=== PATIENT | male | born 1950 | race Two or more races ===

== ENCOUNTER 2016-12-24 17:23 | Inpatient (IN) | payer MEDICARE, MEDICAID ==
[~2016-12-24] VITALS: Ht 170.2 cm; Wt 68.0 kg
[2016-12-24 17:30] VITALS: BP 108/78
[2016-12-24] MEDS ORDERED: METFORMIN HCL500 M1 ORAL (17:34)
[2016-12-24] MEDS ORDERED: COLACE100 MG ORAL (17:34)
[2016-12-24] MEDS ORDERED: TAMSULOSIN HCL0.4 MG ORAL (17:34)
[2016-12-24] MEDS ORDERED: ACETAMINOP160 MG/54 ORAL (17:34)
[2016-12-24] MEDS ORDERED: ZOCOR20 M1 ORAL (17:34)
[2016-12-24] MEDS ORDERED: DULCOLAX10 MG RC (17:34)
[2016-12-24] MEDS ORDERED: IBUPROFEN600 MG ORAL (17:34)
[2016-12-24] MEDS ORDERED: RISPERDAL2 MG ORAL (17:34)
[2016-12-24] MEDS ORDERED: LITHIUM CARBON300 MG ORAL (17:34)
[2016-12-24] MEDS ORDERED: MULTIVITAMINS1 EAC2 ORAL (17:34)
--- NOTE | 2016-12-24 17:49 | Emergency Room Report ---
History of Present Illness General Chief Complaint: General Complaint Source: Patient, Medical Record, EMS Present Illness HPI Patient is a 66-year-old male sent in by EMS after had decreased oral intake. Patient been sent in from nursing facility. Patient was noted to have eloped from the facility several times. Patient had not been complaining of any pain. Per jail patient had been not able to take by mouth fluids or food Allergies: Coded Allergies: No Known Allergies (Unverified , 12/24/16) Patient History Past Medical History: see triage record Reviewed Nursing Documentation: PMH: Agreed, PSxH: Agreed Nursing Documentation-PMH Hx Cardiac Problems: No Hx Hypertension: No Hx Pacemaker: No Hx Asthma: No Hx COPD: No Hx Diabetes: Yes History Of Psychiatric Problem: Yes - schizophrenia Hx Cerebrovascular Accident: No Hx Seizures: No Review of Systems All Other Systems: negative except mentioned in HPI Physical Exam Vital Signs Date Time Temp Pulse Resp B/P (MAP) Pulse Ox O2 Delivery O2 Flow Rate FiO2 12/24/16 17:17 98.2 62 16 130/70 98 Room Air Sp02 EP Interpretation: reviewed, normal General Appearance: normal inspection, alert, Chronically Ill Head: atraumatic ENT: normal ENT inspection, hearing grossly normal, normal voice Neck: normal inspection, full range of motion, supple, no bony tend Respiratory: normal inspection, lungs clear, normal breath sounds, no respiratory distress, no retraction, no wheezing Cardiovascular #1: regular rate, rhythm, no edema Gastrointestinal: normal inspection, normal bowel sounds, non tender, soft, no guarding, no hernia Genitourinary: no CVA tenderness Musculoskeletal: normal inspection, back normal, normal range of motion Neurologic: normal inspection, alert, responsive, oracle soa developer III-XII nml as tested, speech normal Psychiatric: anxious Skin: normal inspection, normal color, no rash Medical Decision Making Diagnostic Impression: Primary Impression: Bipolar disorder Additional Impression: Failure to thrive ER Course Patient presented for generalized weakness. Differential diagnosis included was not limited to anemia, urinary tract infection, electrolyte abnormality, hypothyroidism, myocardial infarction, myasthenia gravis, dehydration, among others. Laboratory studies showed evidence of mild dehydration.Dr. Nicho Chino was contacted for inpatient management Labs Test 12/24/16 16:34 12/24/16 16:50 12/24/16 17:51 White Blood Count 6.9 K/UL (4.8-10.8) Red Blood Count 4.34 M/UL (4.70-6.10) Hemoglobin 12.6 G/DL (14.2-18.0) Hematocrit 40.4 % (42.0-52.0) Mean Corpuscular Volume 93 FL (80-99) Mean Corpuscular Hemoglobin 29.1 PG (27.0-31.0) Mean Corpuscular Hemoglobin Concent 31.2 G/DL (32.0-36.0) Red Cell Distribution Width 14.3 % (11.6-14.8) Platelet Count 161 K/UL (150-450) Mean Platelet Volume 6.6 FL (6.5-10.1) Neutrophils (%) (Auto) 39.1 % (45.0-75.0) Lymphocytes (%) (Auto) 48.1 % (20.0-45.0) Monocytes (%) (Auto) 6.0 % (1.0-10.0) Eosinophils (%) (Auto) 5.5 % (0.0-3.0) Basophils (%) (Auto) 1.3 % (0.0-2.0) Sodium Level 140 mEQ/L (135-145) Potassium Level 4.0 mEQ/L (3.4-4.9) Chloride Level 103 mEQ/L (98-107) Carbon Dioxide Level 25 mEQ/L (20-30) Anion Gap 12 (5-15) Blood Urea Nitrogen 13 mg/dL (7-23) Creatinine 1.2 mg/dL (0.7-1.2) Estimat Glomerular Filtration Rate > 60 mL/min (>60) Glucose Level 78 mg/dL (74-106) Calcium Level 9.5 mg/dL (8.6-10.2) Phosphorus Level 3.5 mg/dL (2.5-4.8) Magnesium Level 2.1 mg/dL (1.7-2.5) Total Bilirubin 0.2 mg/dL (0.0-1.2) Aspartate Amino Transf (AST/SGOT) 24 U/L (5-40) Alanine Aminotransferase (ALT/SGPT) 15 U/L (3-41) Alkaline Phosphatase 58 U/L (40-129) Total Creatine Kinase 183 U/L (38-174) Creatine Kinase MB 2.6 ng/mL (< 6.7) Creatine Kinase MB Relative Index 1.4 Troponin I < 0.30 ng/mL (<=0.30) Total Protein 7.2 g/dL (6.6-8.7) Albumin 4.0 g/dL (3.5-5.2) Globulin 3.2 g/dL Albumin/Globulin Ratio 1.2 (1.0-2.7) Lactic Acid Level 1.00 mmol/L (0.66-2.22) Urine Color Pale yellow Urine Appearance Clear Urine pH 6.5 (4.5-8.0) Urine Specific [place] 1.010 (1.005-1.035) Urine Protein Negative (NEGATIVE) Urine Glucose (UA) Negative (NEGATIVE) Urine Ketones Negative (NEGATIVE) Urine Occult Blood Negative (NEGATIVE) Urine Nitrite Negative (NEGATIVE) Urine Bilirubin Negative (NEGATIVE) Urine Urobilinogen Normal MG/DL (0.0-1.0) Urine Leukocyte Esterase Negative (NEGATIVE) Last Vital Signs Date Time Temp Pulse Resp B/P (MAP) Pulse Ox O2 Delivery O2 Flow Rate FiO2 12/24/16 17:17 98.2 62 16 130/70 98 Room Air Status: improved Disposition: ADMITTED INPATIENT Condition: Po Aparicio Dec 24, 2016 17:49
[2016-12-24 18:30] VITALS: BP 108/82
[2016-12-24 18:48] LABS: APPEARANCE,URINE CLEAR; KETONES,URINE NEGATIVE (NEGATIVE); LEUKOCYTE ESTERASE ,URINE NEGATIVE (NEGATIVE); NITRITE,URINE NEGATIVE (NEGATIVE); PH,URINE 6.5 (4.5-8.0); PROTEIN,URINE NEGATIVE (NEGATIVE); UROBILINOGEN,URINE NORMAL MG/DL (0.0-1.0)
[2016-12-24 19:07] LABS: BASOPHILS % (AUTO) 1.3 % (0.0-2.0); EOSINOPHILS % (AUTO) 5.5 % (0.0-3.0); LYMPHOCYTES % (AUTO) 48.1 % (20.0-45.0); MEAN CORPUSCULAR HEMOGLOBIN 29.1 PG (27.0-31.0); MEAN CORPUSCULAR HGB CONC 31.2 G/DL (32.0-36.0); MEAN CORPUSCULAR VOLUME 93 FL (80-99); MEAN PLATELET VOLUME 6.6 FL (6.5-10.1); NEUTROPHILS % (AUTO) 39.1 % (45.0-75.0); PLATELET COUNT 161 K/UL (150-450); RED BLOOD COUNT 4.34 M/UL (4.70-6.10); RED CELL DISTRIBUTION WIDTH 14.3 % (11.6-14.8); WHITE BLOOD COUNT 6.9 K/UL (4.8-10.8)
[2016-12-24 19:20] LABS: ALANINE AMINOTRANSFERASE 15 U/L (3-41); ALBUMIN/GLOBULIN RATIO 1.2 (1.0-2.7); ANION GAP 12 (5-15); ASPARTATE AMINO TRANSFERASE 24 U/L (5-40); CALCIUM 9.5 mg/dL (8.6-10.2); CARBON DIOXIDE 25 mEQ/L (20-30); CHLORIDE 103 mEQ/L (98-107); CREATININE 1.2 mg/dL (0.7-1.2); GLOMERULAR FILTRATION RATE > 60 mL/min (>60); HEMOLYSIS 4; MAGNESIUM 2.1 mg/dL (1.7-2.5); PHOSPHORUS 3.5 mg/dL (2.5-4.8); SODIUM 140 mEQ/L (135-145); TOTAL PROTEIN 7.2 g/dL (6.6-8.7); TROPONIN I < 0.30 ng/mL (<=0.30)
[2016-12-24 19:31] LABS: CKMB 2.6 ng/mL (< 6.7)
[2016-12-24 19:45] VITALS: BP 117/70
[2016-12-24 22:06] VITALS: BP 110/75
[2016-12-24] MEDS ORDERED: Zolpidem 5mg tab ORAL PRN (22:15)
[2016-12-24] MEDS ORDERED: Miralax 17gm pkt ORAL PRN (22:15)
[2016-12-24] MEDS ORDERED: Mylanta II UD 30ml ORAL PRN (22:15)
[2016-12-24] MEDS ORDERED: Morphine Sulfate 2mg/ml Inj IVP PRN (22:15)
[2016-12-25] VITALS: BP 118/82
[2016-12-25] MEDS: Lithium Carbonate 150mg cap ORAL SCH ×2 (00:41→20:28)
[2016-12-25] MEDS: LORazepam Inj 2mg/ml 1ml IV PRN ×4 (02:46→18:52)
[2016-12-25 04:00] VITALS: BP 106/66
[2016-12-25 08:00] VITALS: BP 110/70
[2016-12-25 08:36] LABS: BASOPHILS % (AUTO) 0.8 % (0.0-2.0); EOSINOPHILS % (AUTO) 8.4 % (0.0-3.0); LYMPHOCYTES % (AUTO) 50.1 % (20.0-45.0); MEAN CORPUSCULAR HEMOGLOBIN 30.5 PG (27.0-31.0); MEAN CORPUSCULAR HGB CONC 33.4 G/DL (32.0-36.0); MEAN CORPUSCULAR VOLUME 91 FL (80-99); MEAN PLATELET VOLUME 6.4 FL (6.5-10.1); MONOCYTES % (AUTO) 8.2 % (1.0-10.0); NEUTROPHILS % (AUTO) 32.5 % (45.0-75.0); PLATELET COUNT 150 K/UL (150-450); RED BLOOD COUNT 4.02 M/UL (4.70-6.10)
[2016-12-25 08:43] LABS: ALANINE AMINOTRANSFERASE 13 U/L (3-41); ALBUMIN/GLOBULIN RATIO 1.1 (1.0-2.7); ANION GAP 10 (5-15); ASPARTATE AMINO TRANSFERASE 18 U/L (5-40); CALCIUM 9.1 mg/dL (8.6-10.2); CARBON DIOXIDE 24 mEQ/L (20-30); CHLORIDE 107 mEQ/L (98-107); CHOLESTEROL 107 mg/dL (< 200); CHOLESTEROL/HDL RATIO 1.9 (3.3-4.4); CREATININE 0.9 mg/dL (0.7-1.2); GLOMERULAR FILTRATION RATE > 60 mL/min (>60); HEMOLYSIS 0; LDL CHOLESTEROL CALC 35 mg/dL (60-99); POTASSIUM 3.9 mEQ/L (3.4-4.9); SODIUM 141 mEQ/L (135-145); TOTAL PROTEIN 6.3 g/dL (6.6-8.7)
[2016-12-25 08:49] LABS: THYROID STIMULATING HORMONE 0.052 uIU/mL (0.300-4.500)
[2016-12-25] MEDS ORDERED: Haloperidol 5mg/ml Inj IM PRN (10:00)
--- NOTE | 2016-12-25 10:58 | Diagnostic Imaging Report ---
Indication: Dyspnea Comparison: None A single view chest radiograph was obtained. Findings: No definite infiltrate or pulmonary vascular congestion identified. The heart is enlarged. The aorta is mildly enlarged consistent with atherosclerotic vascular disease. The bones are osteopenic. Impression: No acute disease
[2016-12-25 11:11] VITALS: BP 102/68
--- NOTE | 2016-12-25 11:40 | History & Physical ---
History and Physical History & Physicial Dictated fo Int Med Dr Chino no. [id number]. JEAN PIERRE MARKS Dec 25, 2016 11:40
[2016-12-25 15:47] VITALS: BP 107/74
[2016-12-25 20:11] VITALS: BP 121/79
--- NOTE | 2016-12-25 20:15 | History and Physical Report ---
DATE OF ADMISSION: 12/24/2016 Chief Complaint: The patient is a 66-year-old male, presents with chief complaint of altered mental status. History Of Present Illness: The patient is apparently a resident of alf facility. According to staff at the alf facility, the patient became agitated. The patient was not eating. The patient presented to [facility]. The patient was admitted for altered mental status and failure to thrive. Of note, the patient does not have his dentures in place and may not be eating secondary to being edentulous. PAST MEDICAL HISTORY: Significant for: 1. Diabetes type 2. 2. Hypercholesterolemia. 3. Bipolar depression. 4. Benign prostatic hypertrophy. PAST SURGICAL HISTORY: The patient denies. CURRENT MEDICATIONS: 1. Tylenol 650 mg p.o. q.4 hours p.r.n. 2. Docusate 100 mg one tablet p.o. daily. 3. Ibuprofen 600 mg one tablet p.o. q.6 hours. 4. [place] 450 mg p.o. nightly. 5. Metformin 500 mg one tablet p.o. daily. 6. Multivitamin one p.o. daily. 7. Risperdal 3 mg one tablet p.o. nightly. 8. Zocor 20 mg one tablet p.o. nightly. 9. Flomax 0.4 mg one tablet p.o. nightly. ALLERGIES: No known drug allergies. Social History: The patient is a resident of alf facility. The patient admits to tobacco use one pack per day. The patient denies alcohol use. PHYSICAL EXAMINATION: Vital Signs: Temperature 98.2, respirations 21, pulse 82, and blood pressure 117/70. General: The patient is well-developed and well-nourished, agitated male, in no apparent distress. HEENT: Eyes, pupils are equal and responsive to light and accommodation. Extraocular movements are intact. NECK: Supple without lymphadenopathy. Chest: Lungs are clear to auscultation bilaterally without wheezes or rales. Cardiovascular: Regular rate. S1 and S2 normal without murmurs, rubs, or gallops. Abdomen: Soft, nontender, and nondistended. Positive bowel sounds. No evidence of hepatosplenomegaly. Currently, no rebound or guarding noted. EXTREMITIES: Negative for clubbing, cyanosis, or edema. RECTAL: Refused. GENITAL: Refused. Neurologic: Cranial nerves II through XII are grossly intact without focal deficits. Motor strength is 5/5 bilaterally. Deep tendon reflexes are 2+ plantar. Laboratory Studies: WBC 6.9, hemoglobin 12.6, hematocrit 40.4, and platelets 161,000. Sodium 140, potassium 4.0, chloride 103, CO2 25, BUN 13, creatinine 1.2, and glucose 78. Urinalysis was within normal limits. ASSESSMENT: This is a 66-year-old male: 1. Altered mental status. 2. Failure to thrive. 3. Diabetes type 2. 4. Hypercholesterolemia. 5. Bipolar depression. 6. Benign prostatic hypertrophy. TREATMENT: 1. Altered mental status/failure to thrive. A psychiatric consultation was obtained with Dr. Zamorano. A swallow evaluation is pending. The patient will be offered soft diet as the patient is currently edentulous. Altered mental status may be secondary to bipolar depression, uncontrolled. 2. Diabetes type 2. Continue metformin as above. 3. Hypercholesteremia. Continue Zocor as above. 4. Bipolar depression. Continue lithium and Risperdal as above. We will follow recommendations of Psychiatry. The patient has a Psychiatric evaluation pending with Dr. Zamorano. 5. Benign prostatic hypertrophy. Continue Flomax as above. Shaji Hutchison M.D. DR: KEV JOB#: [id number] CC:
[2016-12-25] MEDS ORDERED: Tamsulosin 0.4mg cap ORAL SCH (21:00)
--- NOTE | 2016-12-25 21:40 | Consultation ---
History of Present Illness General Date patient seen: Dec 25, 2016 Chief Complaint: General Complaint Present Illness HPI 66-year-old male with hx of dementia, Depression, diabetes [facility] had decreased oral [facility]. Patient been sent in from nursing facility. Patient was noted to have eloped from the facility several times. Patient had not been complaining of any pain. [facility] patient had been not able to take by mouth fluids or food Allergies: Coded Allergies: No Known Allergies (Unverified , 12/24/16) Medication History Scheduled [place] Carbonate* ([place]*), 450 MG ORAL BEDTIME, (Reported) Risperidone* (Risperdal*), 3 MG ORAL BEDTIME, (Reported) Tamsulosin HCl (Flomax), 0.4 MG ORAL HS, (Reported) Tamsulosin Hcl (Tamsulosin Hcl*), 0.4 MG ORAL BEDTIME, (Reported) Scheduled PRN Acetaminophen* (Acetaminophen*), 325 MG ORAL Q6H PRN for Mild Pain/Temp > 100.5, (Reported) Lorazepam* (Lorazepam*), 0.5 MG IV Q4H PRN for For Anxiety, (Reported) Morphine Sulfate* (Morphine Sulfate*), 1 MG IV Q4HR PRN for For Pain, (Reported) Ondansetron* (Zofran*), 4 MG IV Q6H PRN for Nausea & Vomiting, (Reported) Polyethylene Glycol 3350* (Miralax*), 17 GM ORAL HS PRN for Constipation, ( Reported) Zolpidem Tartrate* (Ambien*), 5 MG ORAL BEDTIME PRN for Insomnia, (Reported) Discontinued Medications Bisacodyl (Dulcolax), 10 MG RC, (Reported) Discontinued Reason: MD discontinued med Docusate Sodium* (Colace*), 100 MG ORAL DAILY, (Reported) Discontinued Reason: MD discontinued med Ibuprofen* (Motrin*), 600 MG ORAL Q6H PRN for For Pain, (Reported) Discontinued Reason: MD discontinued med Metformin Hcl* (Metformin Hcl*), 500 MG ORAL DAILY, (Reported) Discontinued Reason: MD discontinued med Multivitamins* (Multivitamins*), 1 TAB ORAL DAILY, (Reported) Discontinued Reason: MD discontinued med Simvastatin (Zocor), 20 MG ORAL BEDTIME, (Reported) Discontinued Reason: MD discontinued med Patient History Healthcare decision maker Resuscitation status Full Code Advanced Directive on File No Past Medical/Surgical History Past Medical/Surgical History: (1) Dementia (2) Schizo-affective psychosis Review of Systems Constitutional: Reports: no symptoms Eye: Reports: no symptoms ENT: Reports: no symptoms Physical Exam General Appearance: WD/WN, alert, mild distress Lines, tubes and drains: peripheral HEENT: normocephalic, anicteric Neck: non-tender, normal alignment Respiratory/Chest: chest wall non-tender, lungs clear Breasts: no masses Cardiovascular/Chest: normal peripheral pulses, regular rhythm Abdomen: normal bowel sounds Genitourinary/Rectal: normal genital exam Last 24 Hour Vital Signs Date Time Temp Pulse Resp B/P (MAP) Pulse Ox O2 Delivery O2 Flow Rate FiO2 12/25/16 20:11 98.2 82 19 121/79 97 Room Air 12/25/16 15:47 97.8 89 21 107/74 96 Room Air 12/25/16 11:11 97.5 90 20 102/68 96 Room Air 12/25/16 08:00 97.3 107 21 110/70 98 Room Air 12/25/16 04:00 98.6 89 22 106/66 98 Room Air 12/25/16 00:00 98.2 82 21 118/82 100 Room Air 12/24/16 22:06 98.4 71 21 110/75 100 Room Air Intake and Output 12/25/16 12/26/16 19:00 07:00 Intake Total 1080 ml Output Total 1000 ml Balance 80 ml Intake Oral 1080 ml Output Urine Total 1000 ml # Bowel Movements 1 Laboratory Tests Test 12/25/16 07:05 White Blood Count 5.0 K/UL (4.8-10.8) Red Blood Count 4.02 M/UL (4.70-6.10) L Hemoglobin 12.3 G/DL (14.2-18.0) L Hematocrit 36.7 % (42.0-52.0) L Mean Corpuscular Volume 91 FL (80-99) Mean Corpuscular Hemoglobin 30.5 PG (27.0-31.0) Mean Corpuscular Hemoglobin Concent 33.4 G/DL (32.0-36.0) Red Cell Distribution Width 14.0 % (11.6-14.8) Platelet Count 150 K/UL (150-450) Mean Platelet Volume 6.4 FL (6.5-10.1) L Neutrophils (%) (Auto) 32.5 % (45.0-75.0) L Lymphocytes (%) (Auto) 50.1 % (20.0-45.0) H Monocytes (%) (Auto) 8.2 % (1.0-10.0) Eosinophils (%) (Auto) 8.4 % (0.0-3.0) H Basophils (%) (Auto) 0.8 % (0.0-2.0) Sodium Level 141 mEQ/L (135-145) Potassium Level 3.9 mEQ/L (3.4-4.9) Chloride Level 107 mEQ/L (98-107) Carbon Dioxide Level 24 mEQ/L (20-30) Anion Gap 10 (5-15) Blood Urea Nitrogen 13 mg/dL (7-23) Creatinine 0.9 mg/dL (0.7-1.2) Estimat Glomerular Filtration Rate > 60 mL/min (>60) Glucose Level 84 mg/dL (74-106) Calcium Level 9.1 mg/dL (8.6-10.2) Total Bilirubin < 0.2 mg/dL (0.0-1.2) Aspartate Amino Transf (AST/SGOT) 18 U/L (5-40) Alanine Aminotransferase (ALT/SGPT) 13 U/L (3-41) Alkaline Phosphatase 52 U/L (40-129) Total Protein 6.3 g/dL (6.6-8.7) L Albumin 3.3 g/dL (3.5-5.2) L Globulin 3.0 g/dL Albumin/Globulin Ratio 1.1 (1.0-2.7) Triglycerides Level 85 mg/dL (< 150) Cholesterol Level 107 mg/dL (< 200) LDL Cholesterol 35 mg/dL (60-99) L HDL Cholesterol 55 mg/dL (> 60) Cholesterol/HDL Ratio 1.9 (3.3-4.4) L Thyroid Stimulating Hormone (TSH) 0.052 uIU/mL (0.300-4.500) [place] Level Pending Height (Feet): 5 Height (Inches): 7.00 Weight (Pounds): 150 Medications Current Medications Medications (Trade) Dose Ordered Sig/Herman Route PRN Reason Start Time Stop Time Status Last Admin Dose Admin Acetaminophen (Tylenol) 650 mg Q4H PRN ORAL fever 12/24/16 22:15 01/23/17 22:14 Al Hydroxide/Mg Hydroxide (Mylanta II) 30 ml Q6H PRN ORAL dyspepsia 12/24/16 22:15 01/23/17 22:14 Dextrose (Dextrose 50%) STAT PRN IV Hypoglycemia 12/24/16 22:15 01/23/17 22:14 Haloperidol Lactate (Haldol) 5 mg Q4H PRN IM Agitation 12/25/16 10:00 01/24/17 09:59 [place] Carbonate ([place] Carbonate) 450 mg BEDTIME ORAL 12/24/16 22:45 01/23/17 22:44 12/25/16 20:28 Lorazepam (Ativan 2mg/ml 1ml) 0.5 mg Q4H PRN IV For Anxiety 12/24/16 22:15 12/31/16 22:14 12/25/16 18:52 Morphine Sulfate (Morphine Sulfate) 1 mg EVERY 4 HOURS PRN IVP For Pain 12/24/16 22:15 12/31/16 22:14 Ondansetron HCl (Zofran) 4 mg Q6H PRN IVP Nausea & Vomiting 12/24/16 22:15 01/23/17 22:14 Polyethylene Glycol (Miralax) 17 gm HSPRN PRN ORAL Constipation 12/24/16 22:15 01/23/17 22:14 Risperidone (RisperDAL) 3 mg BEDTIME ORAL 12/25/16 21:00 01/24/17 20:59 12/25/16 20:27 Tamsulosin HCl (Flomax) 0.4 mg BEDTIME ORAL 12/25/16 21:00 01/24/17 20:59 12/25/16 20:27 Zolpidem Tartrate (Ambien) 5 mg HSPRN PRN ORAL Insomnia 12/24/16 22:15 12/31/16 22:14 Assessment/Plan Problem List: (1) Dementia ICD Codes: F03.90 - Unspecified dementia without behavioral disturbance SNOMED: 18079801 (2) Schizo-affective psychosis ICD Codes: F25.9 - Schizoaffective disorder, unspecified SNOMED: 56279450 (3) Poor oral hygiene ICD Codes: Z91.89 - Other specified personal risk factors, not elsewhere classified SNOMED: 791085048 Assessment/Plan calorie count psych evaluation dvt prophylaxis symptomatic treatment JV PYLE Dec 25, 2016 21:40
[2016-12-26 00:04] VITALS: BP 126/74
[2016-12-26 04:00] VITALS: BP 133/82
[2016-12-26 07:26] VITALS: BP 114/77
[2016-12-26 11:21] LABS: BASOPHILS % (AUTO) 0.9 % (0.0-2.0); EOSINOPHILS % (AUTO) 3.6 % (0.0-3.0); LYMPHOCYTES % (AUTO) 42.8 % (20.0-45.0); MEAN CORPUSCULAR HEMOGLOBIN 29.3 PG (27.0-31.0); MEAN CORPUSCULAR HGB CONC 32.2 G/DL (32.0-36.0); MEAN CORPUSCULAR VOLUME 91 FL (80-99); MONOCYTES % (AUTO) 6.6 % (1.0-10.0); NEUTROPHILS % (AUTO) 46.1 % (45.0-75.0); PLATELET COUNT 164 K/UL (150-450); RED BLOOD COUNT 4.37 M/UL (4.70-6.10); RED CELL DISTRIBUTION WIDTH 14.4 % (11.6-14.8); WHITE BLOOD COUNT 6.1 K/UL (4.8-10.8)
[2016-12-26 11:41] LABS: ANION GAP 13 (5-15); CALCIUM 9.5 mg/dL (8.6-10.2); CARBON DIOXIDE 21 mEQ/L (20-30); CHLORIDE 103 mEQ/L (98-107); CREATININE 0.9 mg/dL (0.7-1.2); GLOMERULAR FILTRATION RATE > 60 mL/min (>60); HEMOLYSIS 2; POTASSIUM 4.2 mEQ/L (3.4-4.9); SODIUM 137 mEQ/L (135-145)
[2016-12-26 11:59] VITALS: BP 133/84
[2016-12-26] MEDS: LORazepam Inj 2mg/ml 1ml IV PRN (12:14)
[2016-12-26] MEDS ORDERED: LORAZEPAM2 MG/1 M1 IV (12:51)
[2016-12-26] MEDS ORDERED: MORPHINE 22 MG/1 ML IV (12:52)
[2016-12-26] MEDS ORDERED: AMBIEN5 MG ORAL (12:53)
[2016-12-26] MEDS ORDERED: MIRALAX17 G2 ORAL (12:53)
[2016-12-26] MEDS ORDERED: FLOMAX0.4 MG ORAL (12:53)
[2016-12-26] MEDS ORDERED: ZOFRAN 4 MG4 MG/2 ML IV (12:53)
--- NOTE | 2016-12-26 16:53 | Pulmonology Progress Note ---
Assessment/Plan Problems: (1) Dementia (2) Schizo-affective psychosis (3) Poor oral hygiene Assessment/Plan good oral intake no new complains ok to dc with outpatient psych evaluation Subjective ROS Limited/Unobtainable: No Constitutional: Reports: no symptoms HEENT: Repors: no symptoms Respiratory: Reports: no symptoms Cardiovascular: Reports: no symptoms Allergies: Coded Allergies: No Known Allergies (Unverified , 12/24/16) Objective Last 24 Hour Vital Signs Date Time Temp Pulse Resp B/P (MAP) Pulse Ox O2 Delivery O2 Flow Rate FiO2 12/26/16 11:59 98.1 100 19 133/84 98 Room Air 12/26/16 07:26 97.7 111 19 114/77 98 Room Air 12/26/16 04:00 97.9 77 21 133/82 98 Room Air 12/26/16 00:04 98.2 69 20 126/74 97 Room Air 12/25/16 20:11 98.2 82 19 121/79 97 Room Air General Appearance: WD/WN HEENT: normocephalic, atraumatic, anicteric Respiratory/Chest: chest wall non-tender, lungs clear, normal breath sounds Cardiovascular: normal peripheral pulses, normal rate Abdomen: normal bowel sounds, no organomegaly Extremities: no cyanosis Skin: no rash Neurologic/Psychiatric: clerk to justice II-XII grossly normal, abnormal gait Microbiology Date/Time Source Procedure Growth Status 12/24/16 16:49 Blood Blood Culture - Preliminary NO GROWTH AFTER 24 HOURS Resulted 12/24/16 16:34 Blood Blood Culture - Preliminary NO GROWTH AFTER 24 HOURS Resulted Laboratory Tests 12/26/16 10:30: White Blood Count 6.1, Red Blood Count 4.37L, Hemoglobin 12.8L, Hematocrit 39.8L , Mean Corpuscular Volume 91, Mean Corpuscular Hemoglobin 29.3, Mean Corpuscular Hemoglobin Concent 32.2, Red Cell Distribution Width 14.4, Platelet Count 164, Mean Platelet Volume 7.0, Neutrophils (%) (Auto) 46.1, Lymphocytes (% ) (Auto) 42.8, Monocytes (%) (Auto) 6.6, Eosinophils (%) (Auto) 3.6H, Basophils (%) (Auto) 0.9, Sodium Level 137, Potassium Level 4.2, Chloride Level 103, Carbon Dioxide Level 21, Anion Gap 13, Blood Urea Nitrogen 16, Creatinine 0.9, Estimat Glomerular Filtration Rate > 60, Glucose Level 173H, Calcium Level 9.5 JV PYLE Dec 26, 2016 16:53
--- NOTE | 2016-12-27 09:48 | Discharge Summary ---
Discharge Summary Hospital Course Date of Admission Dec 24, 2016 at 18:36 Date of Discharge Dec 26, 2016 at 15:04 Admitting Diagnosis failure to thrive psychosis HPI Sharath Montanez is a 66 year old male who was admitted on Dec 24, 2016 at 18:36 for Failure To Thrive, Psychosis Hospital Course [id number] Discharge Discharge Disposition Patient was discharged to SNF/Subacute Facility(03) Discharge Diagnoses: Adeola Pugh NP Dec 27, 2016 09:48
--- NOTE | 2016-12-27 18:45 | Discharge Summary 2 SIG ---
DATE OF ADMISSION: 12/24/2016 DATE OF DISCHARGE: 12/26/2016 Brief Hospital Course: The patient is a 66-year-old male who presented with altered mental status. The patient is a resident of [facility] and was taken to [facility], as the patient was noted to be agitated and not eating. On evaluation, blood work showed evidence of mild dehydration. He was admitted to medical floor for failure to thrive. The patient underwent a swallow evaluation. The patient has risk for aspiration due to impulsive eating and drinking. He was continued on mechanical soft chopped diet with thin liquids with strict aspiration precaution. He was encouraged p.o. intake. He was provided a sitter for patient's safety. Chest x-ray showed no acute disease. Blood cultures did not isolate any growth. He had good oral intake and was discharged. Recommended to have outpatient psychiatric evaluation. FINAL DIAGNOSES: 1. Altered mental status. 2. Failure to thrive. 3. Diabetes type 2. 4. Hypercholesterolemia. 5. Bipolar depression. 6. Benign prostatic hypertrophy. 7. Schizoaffective psychosis. 8. Dementia. Disposition: The patient was discharged back to [facility]. DISCHARGE MEDICATIONS: Refer to medication list. Seven Oneil M.D. I have been assigned to dictate discharge summary on this account and I was not involved in the patient's management. Adeola Pugh N.P. DR: ADARSH JOB#: [id number] CC:
--- NOTE | 2017-01-02 23:17 | Cardiology Report ---
APPROVED REPORT EKG Measurement Heart [id number] CT 196P24 [id number] Normal sinus rhythm with sinus arrhythmia Low voltage QRS Borderline ECG
== END 2016-12-26 15:04 | DRG 641 ==
LOC: EDBD 17:23 → EMR 18:29 → 4E 18:36 → EDBEDREQ 18:42
DX: E86.0 Dehydration (principal); F25.9 Schizoaffective disorder, unspecified; F03.90 Unspecified dementia, unspecified severity, without behavioral disturbance, psychotic disturbance, mood disturbance, and anxiety; R62.7 Adult failure to thrive; E78.00 Pure hypercholesterolemia, unspecified; F31.9 Bipolar disorder, unspecified; N40.0 Benign prostatic hyperplasia without lower urinary tract symptoms
CPT/HCPCS: 36415; 71010; 80048; 80053; 80061; 80178; 81003; 82550; 82553; 82962; 83605; 83735; 84100; 84443; 84484; 85025; 87040; 93005; 96365; 99284; 99285